=== PATIENT | male | born 1940 | race Caucasian/White ===

== ENCOUNTER 2019-01-23 12:34 | Outpatient (CLI) | payer MEDICARE, OTHER ==
[~2019-01-23 12:34] MED LIST: ACET-3068 PO; FOLI-43 PO; METH2.5T PO
== END 2019-01-23 23:59 | disposition home or self-care (01) ==
LOC: CARD DIAG 12:34
PROVIDERS: ATTEND Internal Medicine Cardiovascular Disease
DX: I08.8 Other rheumatic multiple valve diseases (principal); Z85.46 Personal history of malignant neoplasm of prostate
CPT/HCPCS: 93306